=== PATIENT | female | born 1950 | race Caucasian/White ===

== ENCOUNTER 2016-03-03 11:07 | Day surgery (SDC) | END 2016-03-03 16:25 | disposition home or self-care (01) | DX: M54.16 Radiculopathy, lumbar region (principal); M19.90 Unspecified osteoarthritis, unspecified site; J45.909 Unspecified asthma, uncomplicated; Z88.8 Allergy status to other drugs, medicaments and biological substances | CPT/HCPCS: 64483; 72100; 85025; 85610; 85730; 86850; 86900; 86901; J0702; J2250; J2597; J3010 ==

== ENCOUNTER 2016-03-31 12:04 | Day surgery (SDC) | payer MEDICARE, BC ==
[2016-03-31] VITALS (14 sets, daily range): BP systolic 113–132; BP diastolic 59–77; PULSE 87–104; RESP 12–27; Ht 170.2 cm; Wt 74.4 kg
[~2016-03-31] VITALS: Ht 170.2 cm; Wt 74.4 kg
[~2016-03-31 12:04] MED LIST: DICL100G37 TOP; DULO20CA43 PO; ESZO3TAB12 PO; LATA2.5D9 BOTH EYES; MAGN400O4 PO; MOME13HF2 INHALATION; MONT10TA21 PO; SIMV20TA PO
[2016-03-31 13:18] LABS: BASOPHILS % 0.5 % (0.0-2.0); EOSINOPHILS # 0.1 10^3/ul (0.0-0.5); EOSINOPHILS % 2.4 % (0.0-7.0); HEMATOCRIT 38.6 % (37.0-47.0); HEMOGLOBIN 13.1 g/dl (12.0-16.0); LYMPHOCYTES # 1.6 10^3/ul (0.8-2.9); LYMPHOCYTES % 29.6 % (15.0-51.0); MEAN CORPUSCULAR HEMOGLOBIN 30.8 pg (29.0-33.0); MEAN CORPUSCULAR VOLUME 90.7 fl (82.0-101.0); MONOCYTE # 0.5 10^3/ul (0.3-0.9); MONOCYTES % 9.2 % (0.0-11.0); NEUTROPHIL # 3.2 10^3/ul (1.6-7.5); NEUTROPHILS % 58.3 % (39.0-77.0); PLATELET COUNT 259 10^3/UL (140-440); RED BLOOD COUNT 4.25 10^6/ul (4.20-5.40); RED CELL DISTRIBUTION WIDTH 12.8 % (11.5-14.5); UNCORRECTED WBC 5.5 10^3/ul (4.8-10.8); WHITE BLOOD COUNT 5.5 10^3/ul (4.8-10.8)
[2016-03-31 13:19] LABS: CONDITION 1
[2016-03-31 13:32] LABS: INR 0.88; PARTIAL THROMBOPLASTIN TIME 33.8 Sec (25.0-35.0); PROTIME 11.9 Sec (12.2-14.2); PT RATIO 0.9
[2016-03-31] MEDS ORDERED: DESMOPRESSIN IV SCH (14:00)
[2016-03-31] MEDS ORDERED: SOD CHLORIDE 0.9% IV SCH (14:00)
[2016-03-31] MEDS ORDERED: FENTAnyl 50 MCG/ML VIAL ONE ×2 (14:07→15:22)
[2016-03-31] MEDS ORDERED: MIDAZOLAM 1 MG/ML 2 ML INJ ONE ×2 (14:07→15:16)
--- NOTE | 2016-03-31 14:28 | HPN ---
Date/Time of Note Date/Time of Note DATE: 03/31/16 TIME: 14:28 Interval H&P Admission Note Pt. seen H&P reviewed: No system changes MONI HA Mar 31, 2016 14:28
[2016-03-31] MEDS ORDERED: ONDANSETRON 4 MG INJ IV PRN (14:30)
[2016-03-31] MEDS ORDERED: FENTAnyl 50 MCG/ML VIAL IV PRN (14:30)
[2016-03-31] MEDS ORDERED: DIPHENHYDRAMINE 50 MG INJ IV PRN (14:30)
[2016-03-31] MEDS ORDERED: METOCLOPRAMIDE 10 MG INJ IV PRN (14:30)
[2016-03-31] MEDS ORDERED: TRIAMCINOLONE ACET 40 MG/ML INJ ONE (14:45)
[2016-03-31] MEDS ORDERED: BUPIVACAINE 0.5% (SDV) 30 ML INJ ONE (14:45)
--- NOTE | 2016-03-31 14:47 | OPR ---
Date/Time of Note Date/Time of Note DATE: 03/31/16 TIME: 14:37 Operative Report Procedure Date: Mar 31, 2016 Preoperative Diagnosis Lumbar Facet disease Myofascial pain Postoperative Diagnosis Same as above Operation Performed Right Lumbar three-Sacral 1 medial branch block Surgeon: MONI HA Anesthesia: MAC Anesthesiologist: FRANSISCA GUZMÁN MD Estimated Blood Loss: none Complications: None Pt Condition Post Procedure: stable Indications Lumbar Facet disease Procedure Description Sedation: Moderate conscious sedation was achieved with IV medications administered by the physician/nurse and the times and doses are accurately reflected in the patients record. Moderate conscious sedation was medically necessary for this procedure because the procedure can be painful and the patient had anxiety, making moderate conscious sedation the best way to safely perform the procedure. Oxygenation was given via nasal cannula and the patient was monitored closely with pulse oximetry, blood pressure, and vital signs, by an independent, trained, qualified observer throughout the procedure to ensure the safety of the administration of the drugs. Full details are available in the nursing report. Description: The risks, benefits and alternatives to the procedure were explained to the patient and written consent obtained. The risks include, but are not limited to : bleeding, infection, nerve damage, extremity(s) weakness/numbness, treatment failure. A peripheral IV was placed prior to the procedure. The skin overlying the procedural region was prepped with chlorhexidine swab and draped in a sterile fashion. A formal Time Out was performed immediately prior to the procedure, confirming correct patient, site, and procedure. The patient was then positioned and the injection site was identified using palpation and patient report. A 27-gauge, 1-1/4 inch needle was then used to inject 0.5% Bupivicaine 4 mL into the muscles, Muscles injected included: Bilateral paracervical muscles. The patient tolerated the procedure well with no problems or issues. The patient reported that the procedure did help his pain The patient tolerated the procedure well without sequelae and was discharged home in stable condition. Fluoroscopy was used on the right side of the spine to identify the articulation of superior articular process and transverse process of L3, L4 and L5, the sacral ala, and the S1 foramen using AP and oblique views. The skin and subcutaneous tissues were anesthetized with 2 ml of 1% Lidocaine 27G needle. A 10 cm 25 gauge needle was advanced to hit each target under intermittent fluoroscopic guidance. For L3, L4, L5, and sacral ala, bone was touched at the articulation of SAP and TP. There was no evidence of heme, CSF or paresthesia. Subsequently, a total mixture of bupivacaine 0.5% 1 ml a 1 ml of this solution was slowly and incrementally injected without resistance through each needle. Alna were re styletted and withdrawn. MONI HA Mar 31, 2016 14:47
[2016-03-31] MEDS ORDERED: OXYCODONE/ACETAMINOPHEN (5/325) TAB PO PRN (16:00)
--- NOTE | 2016-03-31 20:22 | RADRPT ---
PROCEDURE: Intraoperative imaging of the lumbar spine with fluoroscopy. CLINICAL INDICATION: Back pain. Intraoperative. TECHNIQUE: 2 images of the lumbar spine were obtained in the operating room with an image intensif ier. No radiologist was in attendance. 37.9 seconds of fluoroscopy time was used. COMPARISON: 03/03/2016. FINDINGS: 4 needles are noted overlying the lumbar spine. IMPRESSION: 1. Intraoperative imaging of the lumbar spine. RPTAT: QQ .Luis F Neff MD, MD Date Time Electronically viewed and signed by .Luis F Neff MD, MD on 03/31/2016 20:22 .R/
== END 2016-03-31 17:45 | disposition home or self-care (01) ==
LOC: SDS 12:04
PROVIDERS: ATTEND Anesthesiology
DX: M47.816 Spondylosis without myelopathy or radiculopathy, lumbar region (principal); M79.1 Myalgia; J45.909 Unspecified asthma, uncomplicated; E78.5 Hyperlipidemia, unspecified; Z88.8 Allergy status to other drugs, medicaments and biological substances
CPT/HCPCS: 64493; 64494; 64495; 72100; 85025; 85610; 85730; J2250; J2405; J2597; J3010; J3301